=== PATIENT | female | born 1950 | race Caucasian/White ===

== ENCOUNTER 2017-12-31 06:29 | Day surgery (SDC) | payer OTHER ==
[2017-12-30 12:06] LABS: Urine Appearance CLEAR; Urine Bilirubin NEGATIVE (NEG); Urine Blood NEGATIVE (NEG); Urine Color YELLOW; Urine Glucose NEGATIVE (NEG); Urine Protein NEGATIVE (NEG); Urine Urobilinogen 0.2 mg/dL (0.2-1.0); Urine pH 5.5 (5.0-7.0)
[2017-12-30 12:08] LABS: Absolute Lymphocytes (CBC) 1.6 K/uL (0.7-4.9); Absolute Monocytes 0.7 K/uL (0.1-1.3); Absolute Neutrophil 5.3 K/uL (1.8-8.0); Basophils % 0.4 % (0-1.3); Eosinophils % 2.9 % (0-4.4); Hematocrit 36.7 % (36.0-45.0); Lymphocytes % 20.2 % (15.3-44.8); MCH 27.9 pg (27.0-35.0); MCV 87.1 fL (80-100); MPV 7.2 fL (7.6-11.3); Monocytes % 9.3 % (3.3-12.3); RBC Red Blood Cell Count 4.21 M/uL (3.86-4.86)
[2017-12-30 12:14] LABS: Urine Microscopic Reflex ORDER UMIC
[2017-12-30 12:26] LABS: Potassium 4.7 mEq/L (3.6-5.0)
[2017-12-30 12:31] LABS: Urine Bacteria 20-50 /HPF (<20); Urine RBC <5 /HPF (NONE SEEN)
[2017-12-30 12:32] LABS: Urine Culture Reflex Order REFLEXED
--- OUTSIDE RECORDS SUMMARY | 2017-12-31 07:09 | XMS REPORT | Clinical Summary ---
:1950 Author Organization [facility] Address [address] [place] [address] Care Team Providers Name Role Phone Kathleen Hui MD Primary Care Provider Allergies No Known Allergies Current Medications Prescription Sig. Disp. Refills Start End Date Status Date hydroCHLOROthiazide Take 15 mg by Active (HYDRODIURIL) 12.5 MG mouth 2 (two) tablet times a day. aspirin 325 MG tablet Take 325 mg Active by mouth daily. linagliptin (TRADJENTA) Take 5 mg by Active 5 mg tablet mouth daily with breakfast. glipiZIDE (GLUCOTROL) 10 Take 10 mg by Active MG tablet mouth 3 (three) times a day before meals. simvastatin (ZOCOR) 40 Take 40 mg by Active MG tablet mouth nightly. dicyclomine (BENTYL) 20 Take 20 mg by Active mg tablet mouth 2 (two) times a day. hydrALAZINE (APRESOLINE) Take 50 mg by Active 50 MG tablet mouth 2 (two) times a day with meals. carvedilol (COREG) 12.5 Take 12.5 mg Active MG tablet by mouth 2 (two) times a day with meals. furosemide (LASIX) 20 mg Take 20 mg by Active tablet mouth daily. calcitriol (ROCALTROL) Take 0.25 mcg Active 0.25 MCG capsule by mouth daily. diphenoxylate-atropine Take 1 tablet Active (LOMOTIL) 2.5-0.025 mg by mouth 4 per tablet (four) times a day as needed for diarrhea. furosemide (LASIX) 40 mg Take 40 mg by 08/09/20 Discontinued tablet mouth daily. 17 dicyclomine (BENTYL) 20 Take 20 mg by 08/09/20 Discontinued mg tablet mouth 4 17 (four) times a day. traMADol (ULTRAM) 50 mg Take 1 tablet 60 tablet 0 08/15/20 tablet (50 mg total) 7 17 by mouth every 6 (six) hours as needed for moderate pain for up to 6 days. HEPARIN SODIUM,PORCINE Inject 1 mL 60 mL 0 09/08/20 (HEPARIN, PORCINE,) (5,000 Units 7 17 5,000 unit/mL injection total) under the skin every 12 (twelve) hours for 30 days. insulin lispro (HumaLOG) Inject 0-7 10 mL 12 09/08/20 100 unit/mL injection Units under 7 17 the skin 3 (three) times a day with meals for 30 days. piperacillin-tazobactam Infuse 2.25 g 10 each 0 08/19/20 (ZOSYN) 2.25 GM 50 mL into a venous 7 17 Add-[place] catheter every 8 (eight) hours for 10 days. 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 Encounters Date Type Specialty Care Team Description 08/05/2017 Anesthesia Event Intensive Care Tati Middleton MD 08/05/2017 Procedure Pass General Surgery 08/05/2017 Surgery General Surgery ANUEL Thomas MD DIVERTING COLOSTOMY AND WOUND DRESSING EXCHANGE 08/01/2017 Anesthesia Event Intensive Care Fadumo Farrar MD 08/01/2017 Procedure Pass General Surgery 08/01/2017 Surgery General Surgery Shelia, RECTAL EXAM UNDER MD Arnold ANESTHESIA, DEBRIDEMENT OF PERINUEM 07/30/2017 Anesthesia Event General Surgery Jessica Tsang CRNA 07/30/2017 Procedure Pass General Surgery 07/30/2017 Surgery General Surgery Martha, EXAMINATION UNDER Eber Johnson MD ANESTHESIA, EXCISIONAL DEBRIDEMENT OF BILATERAL GLUTEUS AND PERINEUM 07/28/2017 - Hospital Encounter General Internal Kathleen Hui Necrotizing soft 08/09/2017 Medicine MD Rosario tissue infection (Primary Dx) 07/28/2017 Anesthesia Event General Surgery Martín Petty MD 07/28/2017 Procedure Pass General Surgery 07/28/2017 Surgery General Surgery Martha, Incision And Eber Johnson MD Drainage, Abscess, bilateral gluteal infection , sharp excisional debridement . after 12/30/2016 Social History Tobacco Use Types Packs/Day Years Used Date Never Smoker Tobacco Cessation: Counseling Given: No Alcohol Use Drinks/Week oz/Week Comments Yes Quit over 20 years ago Sex Assigned at Date Recorded Not on file Last Filed Vital Signs Vital Sign Reading Time Taken Blood Pressure 170/80 08/09/2017 5:30 PM CDT Pulse 70 08/09/2017 5:30 PM CDT Temperature 37 C (98.6 F) 08/09/2017 4:15 PM CDT Respiratory Rate 18 08/09/2017 4:15 PM CDT Oxygen Saturation 93% 08/09/2017 4:15 PM CDT Inhaled Oxygen Concentration - - Weight 76.3 kg (168 lb 3.2 oz) 08/09/2017 3:32 AM CDT Height 162.6 cm (5' 4") 07/29/2017 2:41 AM CDT Body Mass Index 28.87 08/09/2017 3:32 AM CDT Plan of Treatment Health Maintenance Due Date Last Done Comments COLONOSCOPY 02/03/1998 MAMMOGRAM 02/03/1998 ZOSTER VACCINE 2008 PNEUMOCOCCAL POLYSACCHARIDE VACCINE AGE 65 AND OVER 02/03/2013 PNEUMOCOCCAL-13 02/03/2013 INFLUENZA VACCINE 05/06/2017 Procedures Procedure Name Priority Date/Time Associated Diagnosis Comments CONSULT TO OSTOMY CARE Routine 08/05/2017 11:21 AM NURSE CDT MO AN ELECTIVE Routine 08/05/2017 8:30 AM ENDOTRACHEAL AIRWAY CDT Procedure Note - Tati Middleton MD - 08/05/2017 8:29 AM CDT Airway Date/Time: 08/05/2017 8:16 AM Performed by: TATI MIDDLETON Authorized by: TATI MIDDLETON Location: OR Urgency: Elective Difficult Airway: No Preoxygenated with 100% O2: Yes C-spine Precautions Maintained Throughout: Yes Mask Ventilation: Assisted mask Final Airway Type: Endotracheal airway Final Endotracheal Airway: ETT Cuffed: Yes Technique Used: Direct laryngoscopy Insertion Site: Oral Blade Type: Durant Laryngoscope Blade/Videolaryngoscope Blade Size: 2 ETT Size (mm): 7.0 Cuff at minimum occlusion pressure: Yes Measured from: Lips ETT to Lips (cm): 20 Placement Verified by: CO2 detection, direct visualization and equal breath sounds Laryngoscopic view: Grade I - full view of glottis Rapid Sequence Induction (RSI): No Modified RSI: No Number of Attempts at Approach: 1 MO AN ELECTIVE ENDOTRACHEAL AIRWAY Routine 08/01/2017 10:38 AM CDT Procedure Note - Kobe Castle CRNA - 08/01/2017 10:37 AM CDT Airway Date/Time: 08/01/2017 10:37 AM Performed by: KOBE CASTLE Authorized by: FADUMO FARRAR Location: OR Urgency: Elective Difficult Airway: No Anesthesiologist: FADUMO FARRAR Resident/SEARCH MANAGER: KOBE CASTLE Performed by: resident/SEARCH MANAGER Preoxygenated with 100% O2: Yes C-spine Precautions Maintained Throughout: Yes Mask Ventilation: Easy mask Final Airway Type: Endotracheal airway Final Endotracheal Airway: ETT Cuffed: Yes Technique Used: Direct laryngoscopy Insertion Site: Oral Blade Type: Durant Laryngoscope Blade/Videolaryngoscope Blade Size: 2 Cuff at minimum occlusion pressure: Yes Measured from: Lips ETT to Lips (cm): 21 Placement Verified by: CO2 detection, direct visualization and equal breath sounds Laryngoscopic view: Grade I - full view of glottis Rapid Sequence Induction (RSI): No Modified RSI: No Number of Attempts at Approach: 1 CONSULT TO OSTOMY CARE NURSE Routine 07/30/2017 1:33 PM CDT MO AN ELECTIVE ENDOTRACHEAL AIRWAY Routine 07/28/2017 10:18 PM CDT Procedure Note - Gunner Ko CRNA - 07/28/2017 10:17 PM CDT Airway Date/Time: 07/28/2017 10:18 PM Performed by: GUNNER KO Authorized by: MARTÍN PETTY Location: OR Urgency: Elective Difficult Airway: No Anesthesiologist: MARTÍN PETTY Resident/SEARCH MANAGER: GUNNER KO Performed by: resident/SEARCH MANAGER and anesthesiologist Preoxygenated with 100% O2: Yes C-spine Precautions Maintained Throughout: Yes Mask Ventilation: Easy mask Final Airway Type: Endotracheal airway Final Endotracheal Airway: ETT Cuffed: Yes Technique Used: Direct laryngoscopy Devices/Methods Used in Placement: Intubating stylet Insertion Site: Oral Blade Type: [place]ant Laryngoscope Blade/Videolaryngoscope Blade Size: 2 ETT Size (mm): 7.0 Cuff at minimum occlusion pressure: Yes Measured from: Lips ETT to Lips (cm): 21 Placement Verified by: CO2 detection, direct visualization and equal breath sounds Laryngoscopic view: Grade I - full view of glottis Rapid Sequence Induction (RSI): No Modified RSI: No Number of Attempts at Approach: 1 after 12/30/2016 Results POC glucose (08/09/2017 12:41 PM)Only the most recent of59 resultswithin the time period is included. Component Value Ref Range POC glucose 92 65 - 99 mg/dL Comment: RN Notified Meter ID: [id number] Inspector And Sorter: Jaguar Palmer Specimen Performing Laboratory [facility] DEPARTMENT OF PATHOLOGY AND [address] [address] Estimated GFR (08/08/2017 6:00 AM)Only the most recent of12 resultswithin the time period is included. Component Value Ref Range GFR Non Af Amer 26 (A) mL/min/1.73 m2 GFR Af Amer 32 (A) mL/min/1.73 m2 Comment: Chronic kidney disease: <60 mL/min/1.73m2 Kidney failure: <15 mL/min/1.73m2 The estimated GFR is calculated from the IDMS-traceable Modification of Diet in Renal Disease Equation. The accuracy of the calculation is poor when the creatinine is normal. Calculated values >90 mL/min/1.73m2 are not reported. This equation has not been validated in children (<18 years), women, the elderly (>70 years), or ethnic groups other than Caucasians and Americans. Specimen Performing Laboratory Plasma specimen [facility] DEPARTMENT OF PATHOLOGY AND [address] [place] [address] CBC with platelet and differential (08/08/2017 6:00 AM)Only the most recent of12 resultswithin the time period is included. Component Value Ref Range WBC 9.4 4.5 - 11.0 k/uL RBC 3.19 (L) 4.20 - 5.50 m/uL HGB 9.2 (L) 12.0 - 16.0 g/dL HCT 28.5 (L) 37.0 - 47.0 % MCV 89.3 82.0 - 100.0 fL MCH 28.8 27.0 - 34.0 pg MCHC 32.3 31.0 - 37.0 g/dL RDW - SD 49.1 37.0 - 55.0 fL MPV 9.2 6.9 - 11.0 fL Platelet count 294 150 - 400 K/uL Nucleated RBC 0.00 /100 WBC Neutrophils 69.7 (H) 39.0 - 69.0 % Lymphocytes 15.5 (L) 25.0 - 45.0 % Monocytes 10.6 (H) 0.0 - 10.0 % Eosinophils 2.5 0.0 - 5.0 % Basophils 0.5 0.0 - 1.0 % Immature granulocytes 1.2 (H) 0.0 - 1.0 % Specimen Performing Laboratory Blood [facility] PATHOLOGY AND [address] [address] Magnesium level (08/08/2017 6:00 AM)Only the most recent of12 resultswithin the time period is included. Component Value Ref Range Magnesium 2.1 1.6 - 2.4 mg/dL Specimen Performing Laboratory Plasma specimen [address] [address] Comprehensive metabolic panel (08/08/2017 6:00 AM)Only the most recent of4 resultswithin the time period is included. Component Value Ref Range Sodium 138 135 - 148 mEq/L Potassium 4.6 3.5 - 5.0 mEq/L Chloride 104 98 - 112 mEq/L CO2 25 24 - 31 mEq/L Anion gap 9 7 - 15 mEq/L Comment: Starting from January , anion gap calculation no longer incorporates potassium. Please note the change. BUN 43 (H) 8 - 23 mg/dL Creatinine 1.9 (H) 0.5 - 0.9 mg/dL Glucose 140 (H) 65 - 99 mg/dL Calcium 9.1 8.8 - 10.2 mg/dL Protein 4.5 (L) 6.3 - 8.3 g/dL Albumin 2.2 (L) 3.5 - 5.0 g/dL A/G ratio 1.0 0.7 - 3.8 Alkaline phosphatase 78 35 - 104 U/L AST 11 10 - 35 U/L ALT 12 5 - 50 U/L Total bilirubin 0.3 0.2 - 1.2 mg/dL Specimen Performing Laboratory Plasma specimen [facility] PATH[facility] [address] [place] [address] Ionized calcium (08/07/2017 5:40 AM)Only the most recent of7 resultswithin the time period is included. Component Value Ref Range pH 7.41 Ionized calcium 1.27 1.11 - 1.32 mmol/L Specimen Performing Laboratory Plasma specimen [facility] DEPARTMENT OF PATHOLOGY AND [address] [address] Basic metabolic panel (08/07/2017 5:40 AM)Only the most recent of8 resultswithin the time period is included. Component Value Ref Range Sodium 139 135 - 148 mEq/L Potassium 4.8 3.5 - 5.0 mEq/L Chloride 107 98 - 112 mEq/L CO2 23 (L) 24 - 31 mEq/L Anion gap 9 7 - 15 mEq/L Comment: Starting from January , anion gap calculation no longer incorporates potassium. Please note the change. BUN 45 (H) 8 - 23 mg/dL Creatinine 1.9 (H) 0.5 - 0.9 mg/dL Glucose 132 (H) 65 - 99 mg/dL Calcium 9.2 8.8 - 10.2 mg/dL Specimen Performing Laboratory Plasma specimen [facility] DEPARTMENT PATHOLOGY AND [address] [address] Transfuse RBC (08/06/2017 3:33 PM)Only the most recent of7 resultswithin the time period is included.Partial thromboplastin time, activated (08/05/2017 4: 25 AM)Only the most recent of5 resultswithin the time period is included. Component Value Ref Range PTT 35.8 23.0 - 36.0 sec Comment: PTT therapeutic range for unfractionated heparin is 61.0-112.0 seconds which corresponds to Anti-Xa 0.3-0.7 U/ml. Specimen Performing Laboratory Blood [facility] PATHOLOG[facility] [address] [address] Prothrombin time with INR (08/05/2017 4:25 AM)Only the most recent of6 resultswithin the time period is included. Component Value Ref Range Prothrombin time 15.1 (H) 12.0 - 15.0 sec INR 1.2 Comment: The International Normalized Ratio (INR) is a therapeutic monitoring tool for patients who are stable on oral anticoagulant therapy. An INR of 2.0-3.0 is suggested for deep vein thrombosis/pulmonary embolism. Specimen Performing Laboratory Blood [facility] [place] [address] Prepare RBC, 2 Units (08/04/2017 5:30 AM)Only the most recent of4 resultswithin the time period is included. Component Value Ref Range Product name Red Blood Cells -1, Leukored Unit number [id number] Product code [id number] Dispense status Transfused Blood expiration date 20170814 Blood type code 6200 Blood type A POSITIVE Product name Red Blood Cells -1, Leukored Unit number [id number] Product code [id number] Dispense status Transfused Blood expiration date 20170814 Blood type code 6200 Blood type A POSITIVE Specimen Performing Laboratory [facility] [place] [address] Type and screen (08/04/2017 5:30 AM)Only the most recent of3 resultswithin the time period is included. Component Value Ref Range ABO grouping A Comment: 08/06/1707:39 2 RC available. NOEMI Payan notified. /slhcxk 08/04/17Blood is available.Called Myles @ 18:29.Suki Hines . Rh type POS Antibody screen (gel) NEG Specimen Performing Laboratory Blood [facility] [place] [address] Phosphorus level (08/04/2017 4:28 AM)Only the most recent of7 resultswithin the time period is included. Component Value Ref Range Phosphorus 3.7 2.4 - 4.5 mg/dL Specimen Performing Laboratory Plasma specimen [facility] DEPARTMENT OF PATHOLOGY AND [place] [id number] XR Chest 1 Vw Portable (08/03/2017 11:58 AM)Only the most recent of5 resultswithin the time period is included. Specimen Performing Laboratory [facility] [address] [place] [address] Narrative EXAMINATION:XR CHEST 1 VW PORTABLE CLINICAL HISTORY:Pulmonary Embolus COMPARISON:Single view chest from 08/01/2017 IMPRESSION: Stable pulmonary edema. Increased density overlying the left lung base is most likely related to underlying artifact and possible calcification of the mitral valve annulus. No new focal areas of consolidation. No pleural effusion or pneumothorax. No midline shift. The mediastinal contours and cardiac silhouette are unchanged. Osteopenia. [id number] Procedure Note Hm Interface, Radiology Results Incoming - 08/03/2017 12:04 PM CDT EXAMINATION: XR CHEST 1 VW PORTABLE CLINICAL HISTORY: Pulmonary Embolus COMPARISON: Single view chest from 08/01/2017 IMPRESSION: Stable pulmonary edema. Increased density overlying the left lung base is most likely related to underlying artifact and possible calcification of the mitral valve annulus. No new focal areas of consolidation. No pleural effusion or pneumothorax. No midline shift. The mediastinal contours and cardiac silhouette are unchanged. Osteopenia. [facility]-[id number] Vancomycin level, trough (08/03/2017 11:46 AM) Component Value Ref Range Vancomycin, trough 21.5 (HH) 10.0 - 20.0 ug/mL Comment: Therapeutic Ranges: Peak30.0 - 40.0 ug/mL Ycmdqf38.0 - 20.0 ug/mL Called result with readback to Michelle Eddy/JOHNY 08/03/201713:00 Specimen Performing Laboratory Blood [facility] DEPARTMENT OF PATHOLOGY AND GENOMIC MEDICINE [address] [place] [address] Manual differential (08/03/2017 3:29 AM)Only the most recent of7 resultswithin the time period is included. Component Value Ref Range Manual differential PERFORMED Neutrophils 82.0 (H) 39.0 - 69.0 % Lymphocytes 13.0 (L) 25.0 - 45.0 % Monocytes 2.0 0.0 - 10.0 % Eosinophils 3.0 0.0 - 5.0 % Basophils 0.0 0.0 - 1.0 % Platelet slide review Jan adequate Toxic granulation Slight Anisocytosis Moderate Schistocytes Occasional Ovalocytes Moderate Specimen Performing Laboratory [facility] DEPARTMENT OF PATHOLOGY AND GENOMIC MEDICINE [address] [place] [address] Hemoglobin (08/01/2017 11:45 AM) Component Value Ref Range HGB 8.7 (L) 12.0 - 16.0 g/dL Specimen Performing Laboratory [facility] DEPARTMENT OF PATHOLOGY AND GENOMIC MEDICINE [address] [place] [address] Total iron binding capacity (07/31/2017 3:25 AM) Component Value Ref Range Iron level 61 37 - 145 ug/dL Iron binding capacity 137 (L) 260 - 460 ug/dL % Saturation 44.5 (H) 15.0 - 38.0 % Specimen Performing Laboratory Plasma specimen [facility] PATHOLOGY AND [address] [address] Vancomycin level, random (07/31/2017 3:25 AM)Only the most recent of2 resultswithin the time period is included. Component Value Ref Range Vancomycin, random 14.7 ug/mL Comment: Therapeutic Ranges: Peak30.0 - 40.0 ug/mL Ijvnxt14.0 - 20.0 ug/mL Specimen Performing Laboratory Blood [facility] DEPARTMENT PATHOLOGY AND [address] [address] Arterial blood gas (07/30/2017 5:06 PM)Only the most recent of5 resultswithin the time period is included. Component Value Ref Range pH, arterial 7.24 (L) 7.35 - 7.45 pCO2, arterial 33 (L) 35 - 45 mmHg pO2, arterial 149 (H) 80 - 90 mmHg Bicarbonate, arterial 13.7 (L) 21.0 - 28.0 mmol/L Base excess, arterial -12 (L) -2 - 2 mEq/L O2 saturation, arterial 98 95 - 100 % Specimen Performing Laboratory Blood [facility] PATHOLOGY AND [address] [address] Hemoglobin A1c (07/30/2017 10:52 AM) Component Value Ref Range Hemoglobin A1C 5.7 4.0 - 6.0 % Comment: Less than 6% - Goal of therapy for Type II Diabetes Less than 7%-Goal of therapy for Type I Diabetes Less than 8%-Acceptable control for Type I or Type II Diabetes Greater than 8%-Unacceptable control; action indicated. (ADA94) Specimen Performing Laboratory Blood [facility] DEPARTMENT OF PATHOLOGY AND [address] [address] ECG 12 lead (07/30/2017 10:12 AM) Component Value Ref Range Ventricular rate 69 Atrial rate 69 MO interval 156 QRSD interval 114 QT interval 452 QTC interval 484 P axis 1 -4 QRS axis 1 106 T wave axis 33 EKG impression Normal sinus rhythm-Rightward axis-Cannot rule out Anterior infarct , age undetermined-Abnormal ECG-No previous ECGs available- Specimen Performing Laboratory [facility] [address] [place] [address] Ionized calcium, arterial (07/30/2017 3:00 AM)Only the most recent of4 resultswithin the time period is included. Component Value Ref Range Ionized calcium, arterial 1.08 (L) 1.11 - 1.32 mmol/L Specimen Performing Laboratory Blood [facility] DEPARTMENT OF PATHOLOGY AND GENOMIC MEDICINE [address] [place] [address] Lactic acid level (07/29/2017 9:00 AM)Only the most recent of2 resultswithin the time period is included. Component Value Ref Range Lactic acid 0.5 0.5 - 2.2 mmol/L Specimen Performing Laboratory Plasma specimen [facility] [place] [address] Sedimentation rate (07/29/2017 6:00 AM) Component Value Ref Range Sedimentation rate 89 (H) 0 - 20 mm/hr Specimen Performing Laboratory Blood [facility] [place] [address] C-reactive protein (07/29/2017 6:00 AM) Component Value Ref Range CRP 29.63 (H) 0.00 - 0.50 mg/dL Specimen Performing Laboratory Plasma specimen [facility] DEPARTMENT OF PATHOLOGY AND GENOMIC MEDICINE [address] [place] [address] Blood culture, aerobic & anaerobic (07/29/2017 2:10 AM)Only the most recent of2 resultswithin the time period is included. Component Value Ref Range Blood culture isolate No growth after 5 days of incubation. Comment: Specimen Information Specimen Source: Blood Specimen Site: Hand, left Specimen Performing Laboratory Blood - Hand, left [facility] DEPARTMENT OF PATHOLOGY AND [facility] [address] [place] [address] Urinalysis screen and microscopy, with reflex to culture (07/29/2017 2:00 AM) Only the most recent of2 resultswithin the time period is included. Component Value Ref Range Specimen site Catheterized Color, UA Yellow Appearance, UA Hazy Specific gravity, UA 1.015 1.001 - 1.030 pH, UA 5.0 5.0 - 9.0 Protein, UA Negative Negative Glucose, UA Negative Negative Ketones, UA Negative Negative Bilirubin, UA Negative Negative Blood, UA Negative Negative Nitrite, UA Negative Negative Urobilinogen, UA <2.0 <2.0 E.U./dL Leukocyte esterase, UA Negative Negative Epithelial cells, UA <1 /HPF Round epithelial cells, UA <1 0 - 5 /HPF WBC, UA 1 0 - 4 /HPF RBC, UA 2 0 - 2 /HPF Bacteria, UA Few None seen Yeast, UA None seen Yeast with pseudohyphae, UA None seen Amorphous crystals Few Specimen Performing Laboratory Urine [facility] DEPARTMENT OF PATHOLOGY AND GENOMIC MEDICINE [address] [place], [place] [id number] Urine culture (07/29/2017 2:00 AM)Only the most recent of2 resultswithin the time period is included. Component Value Ref Range Urine culture SEE COMMENTComment: Bacteriuria screen negative. Specimen Performing Laboratory [facility] DEPARTMENT OF PATHOLOGY AND [place] [id number] Sputum culture (07/29/2017 1:00 AM) Component Value Ref Range Sputum culture isolate Normal oral fadia isolated. Comment: Specimen Information Specimen Source: Sputum Specimen Site: Induced Specimen Performing Laboratory Sputum - Induced [facility] DEPARTMENT OF PATHOLOGY AND GENOMIC MEDICINE [address] [place] [address] Gram stain (07/29/2017 1:00 AM)Only the most recent of3 resultswithin the time period is included. Component Value Ref Range Gram stain isolate Rare WBC's No organisms seen Comment: Specimen Information Specimen Source: Sputum Specimen Site: Induced Specimen Performing Laboratory Sputum - Induced [facility] DEPARTMENT OF PATHOLOGY AND GENOMIC MEDICINE [address] [place] [address] Sodium level, syringe (07/28/2017 11:20 PM) Component Value Ref Range Sodium, syringe 127 125 - 148 mEq/L Specimen Performing Laboratory Blood [facility] DEPARTMENT OF PATHOLOGY AND GENOMIC MEDICINE [address] [place], [place] [id number] Potassium, syringe (07/28/2017 11:20 PM) Component Value Ref Range Potassium, syringe 4.8 3.5 - 5.0 mEq/L Specimen Performing Laboratory Blood [facility] DEPARTMENT OF PATHOLOGY AND GENOMIC MEDICINE [address] [place] [address] Hemoglobin, syringe (07/28/2017 11:20 PM) Component Value Ref Range Hemoglobin, syringe 8.2 (L) 12.0 - 16.0 g/dL Specimen Performing Laboratory Blood [facility] DEPARTMENT OF PATHOLOGY AND [facility] [address] [place] [address] Glucose level, syringe (07/28/2017 11:20 PM) Component Value Ref Range Glucose, syringe 114 (H) 65 - 99 mg/dL Specimen Performing Laboratory Blood [facility] DEPARTMENT [place] [address] Arterial blood gas, corrected (07/28/2017 11:20 PM) Component Value Ref Range pH, arterial 7.22 (L) 7.35 - 7.45 pCO2, arterial 44 35 - 45 mmHg pO2, arterial 235 (H) 80 - 90 mmHg Temperature, Celsius 37.0 Degrees C O2 saturation, arterial 98 95 - 100 % pH, arterial corrected 7.22 pCO2, arterial corrected 44 mmHg pO2, arterial corrected 235 mmHg Base excess, arterial -9 (L) -2 - 2 mEq/L Specimen Performing Laboratory Blood [facility] [place] [address] Tissue culture (07/28/2017 10:37 PM) Component Value Ref Range Tissue culture isolate Parabacteroides (Bacteroides) distasonis Recovered in Broth only: , beta lactamase positive , beta lactamase positive (A) Comment: Specimen Information Specimen Source: Tissue Specimen Site: Buttock, left Tissue culture isolate Staphylococcus, coagulase negative Rare (A) Tissue culture isolate Diphtheroids Few (A) Specimen Performing Laboratory Tissue - [facility] DEPARTMENT OF PATHOLOGY AND GENOMIC MEDICINE [address] [place] [address] Anaerobic culture (07/28/2017 10:37 PM)Only the most recent of2 resultswithin the time period is included. Component Value Ref Range Anaerobic culture isolate Parabacteroides (Bacteroides) distasonis , beta lactamase positive (A) Comment: Specimen Information Specimen Source: Tissue Specimen Site: Buttock, left Specimen Performing Laboratory Tissue - [facility] OF PATHOLOGY AND GENOMIC MEDICINE [address] [place] [id number] Aerobic culture (07/28/2017 10:33 PM) Component Value Ref Range Aerobic culture isolate Parabacteroides (Bacteroides) distasonis Recovered in Broth only: , beta lactamase positive (A) Comment: Specimen Information Specimen Source: Fluid Specimen Site: Buttock, left Aerobic culture isolate Staphylococcus, coagulase negative Rare (A) Aerobic culture isolate Diphtheroids Few (A) Specimen Performing Laboratory Fluid - Buttock, left [facility] DEPARTMENT OF PATHOLOGY AND GENOMIC MEDICINE [address] [place] [id number] ECG Pre/Post Op (07/28/2017 9:19 PM) Component Value Ref Range Ventricular rate 81 Atrial rate 81 MO interval 162 QRSD interval 106 QT interval 412 QTC interval 478 P axis 1 55 QRS axis 1 50 T wave axis 175 EKG impression Sinus rhythm with premature atrial complexes-Anterior infarct , age undetermined-Abnormal ECG-No previous ECGs available- Specimen Performing Laboratory [facility] [address] [place] [id number] after 12/30/2016 Insurance Payer Benefit Plan / Group Subscriber ID Type Phone Address MEDICARE MEDICARE PART A AND B xxxxxxxxxx Medicare [place], [place] AETNA AETNA HMO,POS,EPO, MC/EC xxxxxxxxxx HMO [phone] [place] [address]
[2017-12-31] MEDS ORDERED: NA CHLORIDE 0.9% 1,000 ML ONE (07:28)
[2017-12-31] MEDS ORDERED: CEFOXITIN/SWI 1gm 1 GM/10 ML SYR ONE (07:29)
--- NOTE | 2017-12-31 07:31 | P.HP ---
Date of Service: 12/31/17 PC: This 67-year-old female presents for a colostomy takedown. HPC: The patient initially presented with fasciitis to the groin area in necessitated an extensive debridement of open groins cleft in buttock area. At that time she underwent a divergent to prevent contamination. Her wounds have now healed, plan she wants her colostomy reversed. PMH: Diabetes, dumping syndrome PSHx: Previous gastric bypass surgery, colostomy, repair prolapse of colostomy SOC: No known allergies SYS REVIEW: No cough, wheeze, shortness of breath. No chest pain or palpitations. No urinary complaints. Has been walking and using her incentive spirometer prior to this surgery. O/E awake alert vital signs are stable HEENT: Within normal limits Chest: Chest movement equal bilaterally ABD: Colostomy in the left lower quadrant LOCO: Intact DATA: Within normal limits IMPRESSION: Colostomy reversal PLAN: I have discussed at length with this patient over the last few months the procedure colostomy reversal. Risks that are involved. The possibility of bleeding, infection, injury to bowel and surrounding structures. The fact that she may need a colostomy again. The risk of nonhealing, abscess formation, anastomotic breakdown, and have been outlined. She is adamant that she wants this reversed consent forms have been signed.
[2017-12-31] MEDS ORDERED: BUPIVACAINE 0.5% Inj,MDV 50 mL VIAL ONE (07:37)
[2017-12-31] MEDS ORDERED: PROPOFOL 200 MG/20 ML VIAL IV ONE (07:38)
[2017-12-31] MEDS ORDERED: FENTANYL CITR 100 MCG/2 ML ONE ×2 (07:39→09:00)
[2017-12-31] MEDS ORDERED: ONDANSETRON 4 MG/2 ML VIAL ONE (07:39)
[2017-12-31] MEDS ORDERED: ROCURONIUM 50 MG/5 ML VIAL IV ONE (07:39)
[2017-12-31] MEDS ORDERED: MIDAZOLAM HCL 2 MG/2 ML INJ ONE (07:39)
[2017-12-31] MEDS ORDERED: LIDOCAINE 2% MPF 5 ML VIAL ONE (07:39)
[2017-12-31] MEDS ORDERED: D50W 25 GM/50 ML SYRINGE IV ONE (07:40)
[2017-12-31] MEDS ORDERED: EPHEDRINE SULF 50 MG/5 ML SYR ONE (08:27)
[2017-12-31] MEDS ORDERED: NEOSTIGMINE 1 MG/ML -5 ML SYRINGE ONE (09:35)
[2017-12-31] MEDS ORDERED: GLYCOPYRROLATE 0.2 MG/ML SYR ONE (09:35)
[2017-12-31] MEDS: MORPHINE 4 MG/ML SYR ONE ×6 (09:37→10:20)
--- NOTE | 2017-12-31 09:45 | P.OP ---
Preoperative diagnosis: Colostomy takedown Postoperative diagnosis: Colostomy takedown Primary procedure: Colostomy takedown Anesthesia: General Estimated blood loss: Less than 20 cc Operative Technique: The patient brought to the operating room and placed supine on the table. After the induction of adequate general endotracheal anesthesia, the area of the abdomen was prepped with a DuraPrep solution, the colostomy was sewn shut and covered with a op-site, and she was draped in usual aseptic manner a generous midline incision was made. This brought down through the skin and subcutaneous tissue. The fascia was identified in the midline. It was opened from above the umbilicus to the suprapubic area. The posterior peritoneum was identified. It was grasped she had 2 hemostats sharply incise in a 10 blade allowing access the peritoneal cavity. At this point we could see the large amount of subcutaneous tissue and some omentum in the abdomen. The colostomy was identified. It was detached from the anterior abdominal wall using a LANG. The patient was now placed in marked Trendelenburg. On viewing the pelvis we could see the rectum. The 27 dilator was passed up through this to ensure patency. This having mean down the EEA 25 appliance was now passed up to the end of the distal stump. The all colon that had been detached the anterior wall was now prepped using a pursestring suture device. The 25 and will was placed inside. The pursestring was tied. It was brought down to the anvil down the Stapler was then close. Having said at the appropriate tension it was fired. The EEA device was now removed. We had 2 good donuts. The anastomosis was inspected as some in the peritoneal cavity. Is no evidence of any leakage. The intestines were now returned to their normal anatomical position. Attention was turned towards the anterior abdominal wall. The colostomy site was S treated by excising the old intestinal remnant from the anterior abdominal wall. This pus was sent for histopathology. The underlying tissue was now approximated using interrupted sutures of PDS. These are placed mostly on the posterior sheath but also to approximate some the anterior rectus diathesis. Attention was now turned towards the midline. The intestines then returned to their normal anatomical position and the omentum and laid over the top of the bowel the midline was closed with a running suture of the looped nylon. The subcutaneous tissue was inspected for adequate hemostasis and the skin was closed with merritt. We also clip approximated the colostomy site with merritt as well. At the end of procedure she was in a stable condition when sent to the recovery room. Needle sponge instrument count were correct. Nasogastric tube and Packre catheter had been discontinued per the patient's request and that they were not clinically indicated. Complications: None Transferred to: Recovery Room Condition: Good
[2017-12-31] MEDS ORDERED: ONDANSETRON 4 MG/2 ML VIAL IV PRN (09:49)
[2017-12-31] MEDS: HYDROCODONE/APAP 7.5/325 MG TAB PO PRN ×2 (10:52→17:49)
[2017-12-31] MEDS: Ringers Lactate 1,000 ML IV SCH ×2 (10:53→21:25)
[2017-12-31] MEDS ORDERED: Ringers Lactate 1,000 ML IV ONE (10:58)
[2017-12-31] MEDS: MORPHINE 4 MG/ML SYR IV PRN ×4 (12:47→21:25)
[2017-12-31] MEDS: CEFOXITIN/SWI 1gm 1 GM/10 ML SYR IV SCH ×2 (12:47→17:49)
[2017-12-31 14:12] VITALS: BMI 20.3
--- NOTE | 2017-12-31 20:15 | P.PN ---
Date of Service: 12/31/17 S: Patient feels well this evening status post exploratory laparotomy with colostomy takedown. Has been up ambulating. Tolerating liquid diet. Vital signs are stable. O: Incisions are clean A: Surgically stable P: Continue mobilize patient, patient is anxious to be discharged as soon as possible.
[2017-12-31] MEDS ORDERED: CARVEDILOL 6.25 MG PO SCH (21:00)
[2017-12-31] MEDS ORDERED: HOME MED 1 EA UNK (Glipizide [Glucotrol] 10 MG) PO SCH (21:00)
[2017-12-31] MEDS ORDERED: HYDRALAZINE 50 MG PO SCH (21:00)
[2018-01-01] MEDS: CEFOXITIN/SWI 1gm 1 GM/10 ML SYR IV SCH ×5 (00:19→23:28)
[2018-01-01] MEDS: MORPHINE 4 MG/ML SYR IV PRN ×10 (00:19→22:33)
[2018-01-01] MEDS: Ringers Lactate 1,000 ML IV SCH (06:23)
[2018-01-01] MEDS ORDERED: BOR PO SCH (09:00)
[2018-01-01] MEDS ORDERED: HOME MED 1 EA UNK (Cyanocobalamin (Vitamin B-12) [Vitamin B-12] 1,000 MCG) PO SCH (09:00)
[2018-01-01] MEDS ORDERED: HYALUR PO SCH (09:00)
[2018-01-01] MEDS ORDERED: HOME MED 1 EA UNK (Linagliptin [Tradjenta] 5 MG) PO SCH (09:00)
[2018-01-01] MEDS ORDERED: FLUTICASONE PROPIONATE IN SCH (09:00)
[2018-01-01] MEDS ORDERED: COLLAGEN PO SCH (09:00)
[2018-01-01] MEDS ORDERED: CALCITRIOL 0.25 MCG PO SCH (09:00)
[2018-01-01] MEDS ORDERED: CARTILAGE PO SCH (09:00)
[2018-01-01 09:42] VITALS: O2SAT 91
--- NOTE | 2018-01-01 21:04 | P.PN ---
Date of Service: 01/01/18 S: Patient has no specific complaints today. Not much of an appetite. No nausea. Pain is controlled. States she just feels exhausted and is finding it hard to do things for herself. Taking adequate oral intake. O.: Vital signs are stable, incision is clean, quiet abdomen with only occasional bowel sound A: Surgically stable. Possible mild postop ileus P: Admitted as inpatient. Continue to mobilize patient. Encourage p.o. intake. Ambulate patient. It is possible she may be discharged tomorrow, or Friday a.m..
[2018-01-02] MEDS: MORPHINE 4 MG/ML SYR IV PRN ×4 (00:35→08:51)
[2018-01-02] MEDS: CEFOXITIN/SWI 1gm 1 GM/10 ML SYR IV SCH (06:04)
[2018-01-02] MEDS: HYDROCODONE/APAP 7.5/325 MG TAB PO PRN (10:22)
[2018-01-02 13:05] VITALS: BP 135/64; TEMP 98
--- NOTE | 2018-01-04 22:15 | P.DS ---
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 To prevent contamination the colostomy was done. Over the course of last 9 months. We have finally got her wound is almost completely healed except for 1 area in the posterior midline of the pastor cleft. This is covered with granulation tissue and is starting to epithelialize. She 1 since colostomy reversed. She is having a rough time taking care of it, and at 1 point had a intussusception of the colon at the ostomy site necessitating a colostomy revision. She is aware of the risks of this surgery, the possibility of bleeding, infection, need for further surgeries and procedures. Overwhelming infection, the need to have the colostomy again, even were explained. She is adamant that she get this reversed. Hospital Course: The patient presented for elective procedure. She was brought to the operating room where she underwent exploratory laparotomy colostomy takedown and primary anastomosis. She tolerated this well. Postoperatively she was admitted for observation pain control. Over the course of the next 72 hr the patient was able to resume a regular diet, her pain was controlled on oral medication, and she was ambulatory and able to be independent. She has been discharged at this time with home health care. Vital Signs/Physical Exam: Temp Pulse Resp BP Pulse Ox 98.0 F 67 16 135/64 95 01/02/18 12:00 01/02/18 12:00 01/02/18 12:00 01/02/18 12:01/02/18 12:00 Laboratory Data at Discharge: WBC 7.9 K/uL (4.3-10.9) 12/30/17 11:30 Hgb 11.7 g/dL (12.0-15.0) L 12/30/17 11:30 Hct 36.7 % (36.0-45.0) 12/30/17 11:30 Plt Count 370 K/uL (152-406) 12/30/17 11:30 Sodium 136 mEq/L (135-145) 12/30/17 11:30 Potassium 4.7 mEq/L (3.6-5.0) 12/30/17 11:30 BUN 30 mg/dL (6-20) H 12/30/17 11:30 Creatinine 1.80 mg/dL (0.44-1.00) H 12/30/17 11:30 Glucose 64 mg/dL (65-120) L 01/01/18 16:40 Home Medications: Dicyclomine [Bentyl*] 20 mg PO TID 02/11/17 Glipizide [Glucotrol] 10 mg PO TID 02/11/17 Linagliptin [Tradjenta] 5 mg PO DAILY 02/11/17 Aspirin Tab [Ronnie Aspirin*] 325 mg PO DAILY #30 tab 02/12/17 Calcitrol [Rocaltrol*] 0.25 mcg PO DAILY #30 cap 02/12/17 Hydralazine [Apresoline*] 50 mg PO BID #60 tab 02/12/17 Carvedilol [Carvedilol] 6.25 mg PO BID 09/20/17 Fluticasone Propionate 2 spray IN DAILY 09/20/17 Furosemide [Lasix] 40 mg PO DAILY 09/20/17 Cartilage/Collagen/Bor/Hyalur [Joint Health Tablet] 1 each PO DAILY 12/30/17 Cyanocobalamin (Vitamin B-12) [Vitamin B-12] 1,000 mcg PO DAILY 12/30/17 Furosemide [Lasix] 20 mg PO DAILYPRN PRN 12/30/17 Loperamide [Imodium] 4 mg PO Q6HP PRN 12/30/17 Multivitamin [Multivitamins] 1 each PO DAILY 12/30/17 Turmeric Root Extract [Turmeric] 1,000 mg PO DAILY 12/30/17 Vit A/C/E/Zinc/Selenium/Copper [Vision Formula Tablet] 1 each PO DAILY 12/30/17 Zinc 50 mg PO DAILY 12/30/17 Hydrocodone 10/APAP 325 [[place] 10/325] 1 tab PO Q4HP PRN #30 tab 01/01/18 New Medications: Hydrocodone 10/APAP 325 [[place] 10/325] 1 tab PO Q4HP PRN #30 tab PRN Reason: Pain Followup: Marshal Linares MD [ACTIVE - CAN ADMIT] - 01/05/18 (Call for appointment)
== END 2018-01-02 12:16 | disposition home or self-care (01) ==
LOC: OR 06:29 → 2ND 10:24 → OR 01-01 21:02 → 2ND 01-01 21:02 → UNDOADMOB 01-01 21:02 → 2ND 01-01 21:02 → INTOOBSV 01-01 21:02 → OR 01-02 12:16 → UNDODISOB 01-02 12:16
PROVIDERS: ATTEND Surgery
PROC: 0DBE0ZZ Excision of Large Intestine, Open Approach (ICD-10-PCS; principal; 2017-12-31 07:30)
DX: Z43.3 Encounter for attention to colostomy (principal); G89.18 Other acute postprocedural pain; E11.9 Type 2 diabetes mellitus without complications; K91.1 Postgastric surgery syndromes; Z98.84 Bariatric surgery status
CPT/HCPCS: 36415 ×2; 44620; 80048; 82947; 82962 ×11; 85025; 87086; 87088; 88304; G0378; G0379; J2250; J2405; J2710; J3010 ×2; J7030; 81003; 81015